=== PATIENT | male | born 1970 | race Caucasian/White ===

== ENCOUNTER 2024-05-22 08:20 | Outpatient (CLI) | payer BC, SELFPAY | END 2024-05-22 08:21 | disposition home or self-care (01) | LOC: NFLDREF 05-26 06:45 | PROVIDERS: Visit Provider Internal Medicine Nephrology | DX: I12.9 Hypertensive chronic kidney disease with stage 1 through stage 4 chronic kidney disease, or unspecified chronic kidney disease (principal); N18.32 Chronic kidney disease, stage 3b; R82.90 Unspecified abnormal findings in urine | CPT/HCPCS: 80069; 82043; 82570; 84550; 87086 ==

== ENCOUNTER 2025-01-01 08:20 | Outpatient (CLI) | payer BC, SELFPAY | END 2025-01-01 08:21 | disposition home or self-care (01) | LOC: NFLDREF 01-06 05:29 | PROVIDERS: Visit Provider Internal Medicine Nephrology | DX: I12.9 Hypertensive chronic kidney disease with stage 1 through stage 4 chronic kidney disease, or unspecified chronic kidney disease (principal); N18.32 Chronic kidney disease, stage 3b; N03.9 Chronic nephritic syndrome with unspecified morphologic changes; N02.B9 Other recurrent and persistent immunoglobulin A nephropathy; E78.5 Hyperlipidemia, unspecified; R53.83 Other fatigue | CPT/HCPCS: 80061; 80069; 82043; 82570; 83970; 84450; 84460; 84550; 86140 ==